=== PATIENT | female | born 1970 | race Caucasian/White ===

== ENCOUNTER → 2023-10-31 | Day surgery (SDC) | payer MEDICARE ==
[~2023-10-31] MED LIST: HYDROCHLOROTHIA25 MG PO; HYDROXYZINE HCL25 MG PO; KETAMINE 50MG/5ML SYR ONE; LIDOCAINE HCL 1% 2 ML AMP ONE; LIDOCAINE HCL 2% LOCAL INJ 5 ML SDV VIAL INJ ONE; LISINOPRIL10 MG PO; MIDAZOLAM HCL 2 MG/2 ML VIAL ONE; MIRTAZAPINE15 MG PO; NURTEC ODT75 MG PO; PROPOFOL IV EMULSION 10 MG/ML 20 ML VIAL ONE; QUETIAPINE FUM100 MG PO; SERTRALINE HCL100 MG PO; SIMVASTATIN20 MG PO; TOPIRAMATE100 MG PO; VALIUM2 MG PO; VYVANSE30 MG PO
[2023-10-31] MEDS: LACTATED RINGER'S 1,000 ML ONE (09:53)
[2023-10-31 11:40] VITALS: TEMP 98.6
[2023-10-31 12:10] VITALS: BP 126/77; PULSE 90; RESP 16; O2SAT 99
== END | disposition home or self-care (01) ==
LOC: OR 08:37
PROVIDERS: ATTEND Internal Medicine Gastroenterology
DX: R19.5 Other fecal abnormalities (principal); K62.1 Rectal polyp; K64.8 Other hemorrhoids; E11.9 Type 2 diabetes mellitus without complications; I10 Essential (primary) hypertension; Z78.9 Other specified health status; E66.01 Morbid (severe) obesity due to excess calories; F41.9 Anxiety disorder, unspecified; F32.A Depression, unspecified; F90.9 Attention-deficit hyperactivity disorder, unspecified type; Z01.810 Encounter for preprocedural cardiovascular examination; Z79.899 Other long term (current) drug therapy; Z68.41 Body mass index [BMI] 40.0-44.9, adult
CPT/HCPCS: 45385; 88305; 93005; J2001 ×2; J2250; J2704; J7121